=== PATIENT | male | born 1980 | race Caucasian/White ===

== ENCOUNTER → 2018-11-24 | Outpatient (CLI) | payer OTHER ==
--- NOTE | 2018-11-24 10:43 | CT ---
EXAMINATION TYPE: CT abdomen pelvis w con DATE OF EXAM: 11/24/2018 COMPARISON: Prior CT 03/24/2015 HISTORY: Left lower quadrant pain CT DLP: 561.8 mGycm Automated exposure control for dose reduction was used. TECHNIQUE: Helical acquisition of images from the lung bases through the pelvis have been completed. CONTRAST: Performed with Oral Contrast and with IV Contrast, patient injected with 100 mL of Isovue 300. FINDINGS: LUNG BASES: No significant abnormality is appreciated. AORTA: No significant abnormality is appreciated. LIVER/GB: No significant abnormality is appreciated. PANCREAS: No significant abnormality is seen. SPLEEN: No significant abnormality is seen. ADRENALS: No significant abnormality is seen. KIDNEYS: No significant abnormality is seen. REPRODUCTIVE ORGANS: No significant abnormality is seen BOWEL: Retained fecal debris present throughout much of the distribution of the colon. Suspect there is post appendectomy change. FREE AIR: No Free Air visible. ASCITES: None visible. PELVIC ADENOPATHY: None visualized. RETROPERITONEAL ADENOPATHY: No Retroperitoneal Adenopathy visible. URINARY BLADDER: No significant abnormality is seen. OSSEOUS STRUCTURES: No significant abnormality is seen. There may be a spinal curvature findings cou ld be positional. IMPRESSION: CORRELATE FOR POSSIBLE FECAL STASIS. NO EVIDENT BOWEL OBSTRUCTION.
== END | disposition home or self-care (01) ==
LOC: RADCTMAIN 07:00
PROVIDERS: ATTEND Nurse Practitioner Family
DX: R10.32 Left lower quadrant pain (principal)
CPT/HCPCS: 74177; Q9967

== ENCOUNTER → 2020-04-04 | Outpatient (CLI) | payer OTHER ==
--- NOTE | 2020-04-04 10:15 | US ---
EXAMINATION TYPE: US abdomen comp/pelvis limited DATE OF EXAM: 04/04/2020 COMPARISON: CT 2019 CLINICAL HISTORY: R10.32 Left lower abdominal pain N50.819 Testicular. Intermittent abdomen and pelv ic pain EXAM MEASUREMENTS: Liver Length: 16.7 cm Gallbladder Wall: 0.2 cm CBD: 0.3 cm Spleen: 11.7 cm Right Kidney: 12.0 x 4.3 x 5.8 cm Left Kidney: 11.4 x 7.4 x 5.5 cm Pancreas: visualized portions wnl, tail limited by overlying midline bowel gas Liver: wnl Gallbladder: wnl CBD: wnl Spleen: wnl Right Kidney: wnl Left Kidney: wnl Upper IVC: wnl Abd Aorta: wnl Bladder: wnl Bilateral Jets Seen yes Normal Post Void Residual (normal less than 50ml) No aneurysmal change and visualized abdominal aorta. Visualized pancreas shows no worrisome mass or d uctal dilatation. IVC is seen near hepatic dome. Visualized liver shows no worrisome mass or ductal d ilatation. Common bile duct measures within normal limits. Gallbladder unremarkable. Both kidneys nor mal in size without hydronephrosis or concerning mass. Spleen is within normal limits. Bladder shows satisfactory distention and visualization of bilateral distal ureter jets. Postvoid imaging not perfo rmed. IMPRESSION: No suspicious new or acute finding is identified.
--- NOTE | 2020-04-04 10:41 | US ---
EXAMINATION TYPE: US scrotum with doppler. Grayscale and color Doppler Duplex imaging performed of sangita montgomery scrotum. DATE OF EXAM: 04/04/2020 COMPARISON: CT 2019 CLINICAL HISTORY: R10.32 Left lower abdominal pain N50.819 Testicul. Left testicular tenderness EXAM MEASUREMENTS: TESTICLES: Right Testicle: 4.3 x 3.0 x 3.6 cm Left Testicle: 5.1 x 2.9 x 3.2 cm EPIDIDYMIS HEAD: Right Epididymis: 0.9 x 1.3 x 1.4 cm Left Epididymis: 0.8 x 1.2 x 1.3 cm Doppler performed to assess for testicular vascularity; good bilateral color flow and waveforms are s een. Presence of hydroceles: right 3.3cm, left 5.2cm Presence of varicoceles: prominent vessels posterior to left testicle Small left greater than right hydroceles. Comparison view to ascend of study shows satisfactory symme tric blood flow to both testicles. IMPRESSION: No asymmetric increased or decreased blood flow to left testicle.
== END | disposition home or self-care (01) ==
LOC: RADUSWWP 09:30
PROVIDERS: ATTEND Family Medicine
DX: R10.32 Left lower quadrant pain (principal); N50.819 Testicular pain, unspecified
CPT/HCPCS: 76700; 76857; 76870; 93975

== ENCOUNTER 2024-07-19 19:56 | Emergency (ER) | payer OTHER ==
[2024-07-19 20:04] VITALS: RESP 16; TEMP 97.5
[2024-07-19] MEDS: DIPH,PERTUS(ACELL)TETVAC-LF 0.5 ML VIAL IM ONE (20:30)
--- NOTE | 2024-07-19 20:40 | ED ---
Wound/Laceration HPI - General Chief Complaint: Wound/Laceration Stated Complaint: Stepped on nail Time Seen by Provider: 07/19/24 20:37 Source: patient, family (), RN notes reviewed Mode of arrival: ambulatory Limitations: no limitations - History of Present Illness Initial Comments: 43-year-old male presented to ER for evaluation of foot injury. Patient states last night he accidentally stepped on a nail that went through his shoe and into his foot. He states since then he has been having extreme pain to the ball of his right foot. Having difficulty ambulating due to this. Last night after incident he did take an Epsom salt soak to his feet. reports patient was complaining of a headache today for which she took 2 ibuprofens. Patient reports intermittent paresthesias but denies any limited range of motion. Patient's tetanus is not up-to-date. No other injuries or complaints. - Related Data Previous Rx's Medication Instructions Recorded Omeprazole [PriLOSEC] 40 mg PO AC-BRKFST #30 cap 04/01/15 Bacitracin Zinc Oint 1 applic TOPICAL Q6H #1 tube 01/22/16 Ciprofloxacin HCl [Cipro] 500 mg PO Q12HR #20 tablet 07/19/24 Allergies Allergy/AdvReac Type Severity Reaction Status Date / Time No Known Allergies Allergy Verified 07/19/24 20:00 Review of Systems ROS Statement: Those systems with pertinent positive or pertinent negative responses have been documented in the HPI. ROS Other: All systems not noted in ROS Statement are negative. Past Medical History Past Medical History: No Reported History Additional Past Medical History / Comment(s): TOURETTES-tiks History of Any Multi-Drug Resistant Organisms: None Reported Past Surgical History: Appendectomy, Orthopedic Surgery Additional Past Surgical History / Comment(s): right knee Past Anesthesia/Blood Transfusion Reactions: No Reported Reaction Past Psychological History: No Psychological Hx Reported Smoking Status: Never smoker Past Alcohol Use History: Occasional, Rare Past Drug Use History: None Reported General Exam Limitations: no limitations General appearance: alert, in no apparent distress Respiratory exam: Present: normal lung sounds bilaterally. Absent: respiratory distress, wheezes, rales, rhonchi, stridor Cardiovascular Exam: Present: regular rate, normal rhythm, normal heart sounds. Absent: systolic murmur, diastolic murmur, rubs, gallop, clicks Extremities exam: Present: tenderness (Ball of right foot), normal capillary refill, other (Pinpoint puncture wound to ball of right foot. There is no surrounding erythema, purulent drainage or foreign body present. 2+ right DP and PT pulse.) Neurological exam: Present: alert, oriented X3, CN II-XII intact Skin exam: Present: warm, dry, intact, normal color. Absent: rash Course Vital Signs 07/19/24 20:01 Temperature 97.5 F L Pulse Rate 71 Respiratory 16 Rate Blood Pressure 138/84 O2 Sat by Pulse 99 Oximetry Medical Decision Making - Medical Decision Making Was pt. sent in by a medical professional or institution (, PA, BEAUTICIAN APPRENTICE, urgent care, hospital, or fci...) When possible be specific @ -No Did you speak to anyone other than the patient for history (EMS, parent, family, police, friend...)? What history was obtained from this source @ -No Did you review nursing and triage notes (agree or disagree)? Why? @ -I reviewed and agree with nursing and triage notes Were old charts reviewed (outside hosp., previous admission, EMS record, old EK G, old radiological studies, urgent care reports/EKG's, fci records)? Report findings @ -No old charts were reviewed Differential Diagnosis (chest pain, altered mental status, abdominal pain women, abdominal pain men, vaginal bleeding, weakness, fever, dyspnea, syncope, headache, dizziness, GI bleed, back pain, seizure, CVA, palpatations, mental health, musculoskeletal)? @ -Differential Musculoskeletal: Muscular strain, contusion, ligament sprain, fracture, arthritis, septic arthritis, bursitis, cellulitis, muscle spasm, nerve compression, DVT, arterial occlusion, herpes zoster, electrolyte abnormality, tumor.... This is not meant to be in all inclusive list EKG interpreted by me (3pts min.). @ -None done X-rays interpreted by me (1pt min.). @ -Right foot x-ray to remain negative for acute radiopaque foreign bodies, fractures or dislocations. CT interpreted by me (1pt min.). @ -None done U/S interpreted by me (1pt. min.). @ -None done What testing was considered but not performed or refused? (CT, X-rays, U/S, labs)? Why? @ -None What meds were considered but not given or refused? Why? @ -Patient refused analgesic medications. Did you discuss the management of the patient with other professionals (professionals i.e. , PA, BEAUTICIAN APPRENTICE, lab, RT, psych nurse, health care social worker, enzyme chemist, teacher, airline pilot/first officer, case liner)? Give summary @ -No Was smoking cessation discussed for >3mins.? @ -No Was critical care preformed (if so, how long)? @ -No Were there social determinants of health that impacted care today? How? (Homelessness, low income, unemployed, alcoholism, drug addiction, transportation, low edu. Level, literacy, decrease access to med. care, shelter, rehab)? @ -No Was there de-escalation of care discussed even if they declined (Discuss DNR or withdrawal of care, Hospice)? DNR status @ -No What co-morbidities impacted this encounter? (DM, HTN, Smoking, COPD, CAD, Cancer, CVA, ARF, Chemo, Hep., AIDS, mental health diagnosis, sleep apnea, morbid obesity)? @ -None Was patient admitted / discharged? Hospital course, mention meds given and route, prescriptions, significant lab abnormalities, going to OR and other pertinent info. @ -Discharged. 43-year-old male presenting to the ER status post stepping on a nail last night. History and physical exam completed. Vitals stable. Exam remarkable for pinpoint puncture wound to the ball of the right foot. Right lower extremities neurovascular intact. There is no surrounding erythema, drainage or evidence of infection. Tetanus updated. X-rays obtained negative for radiopaque foreign bodies, fractures or dislocations. Patient will be started on ciprofloxacin as nail went through his shoe. Patient stable for discharge at this time. Strict return parameters discussed. Patient discharged in stable condition with follow-up to PCP. Patient verbally expressed understanding and agreement with care plan. Case discussed with ED attending, Dr. Baker. Undiagnosed new problem with uncertain prognosis? @ -No Drug Therapy requiring intensive monitoring for toxicity (Heparin, Nitro, Insulin, Cardizem)? @ -No Were any procedures done? @ -No Diagnosis/symptom? @ -Puncture wound right foot Acute, or Chronic, or Acute on Chronic? @ -Acute Uncomplicated (without systemic symptoms) or Complicated (systemic symptoms)? @ -Uncomplicated Side effects of treatment? @ -No Exacerbation, Progression, or Severe Exacerbation? @ -No Poses a threat to life or bodily function? How? (Chest pain, [place], PR, pneumonia, PE, COPD, DKA, ARF, appy, cholecystitis, CVA, Diverticulitis, Homicidal, Suici darion, threat to staff... and all critical care pts) @ -No - Radiology Data Radiology results: report reviewed, image reviewed Disposition Clinical Impression: Puncture wound to foot Disposition: HOME SELF-CARE Condition: Stable Instructions (If sedation given, give patient instructions): Puncture Wound in the Foot (ED) Additional Instructions: Complete full course of antibiotics you received the first dose in the ER tonight. Monitor for signs of infection including surrounding redness, drainage or increase in pain and swelling. Follow-up with PCP for recheck in the next 1 to 2 days. Return to the ER for any new or worsening concerns Prescriptions: Ciprofloxacin HCl [Cipro] 500 mg PO Q12HR #20 tablet Is patient prescribed a controlled substance at d/c from ED?: No Referrals: Joe Olivier Jr, DO [Primary Care Provider] - 1-2 days Time of Disposition: 21:13
--- NOTE | 2024-07-19 21:00 | XR ---
EXAMINATION TYPE: XR foot complete RT DATE OF EXAM: 07/19/2024 8:31 PM COMPARISON: None CLINICAL INDICATION: Male, 43 years old with history of stepped on nail; TECHNIQUE: XR foot complete RT examined in the AP, oblique, and lateral projections. FINDINGS: No evidence of any acute osseous pathology. No radiopaque foreign body. IMPRESSION: 1. No evidence of acute fracture. 2. No radiopaque foreign body. [facility], , 07/19/2024 8:58 PM
[2024-07-19] MEDS: CIPROFLOXACIN HCL 250 MG TAB PO STA (21:36)
[2024-07-19 21:40] VITALS: BP 124/76; PULSE 70
== END 2024-07-19 21:39 | disposition home or self-care (01) ==
LOC: EC 19:56
DX: S91.331A Puncture wound without foreign body, right foot, initial encounter (principal); Z23 Encounter for immunization; W45.0XXA Nail entering through skin, initial encounter
CPT/HCPCS: 90471; 90715; 99282